=== PATIENT | male | born 1985 | race American Indian/Alaskan Native ===

== ENCOUNTER 2017-02-19 03:08 | Emergency (ER) | payer OTHER ==
[~2017-02-19] VITALS: Ht 175.3 cm; Wt 86.2 kg
[~2017-02-19 03:08] MED LIST: NORCO 10-325 T1 EACH PO; ULTRAM50 MG PO
== END 2017-02-19 04:01 | disposition home or self-care (01) ==
LOC: ED 03:08
DX: Z00.8 Encounter for other general examination (principal); F17.200 Nicotine dependence, unspecified, uncomplicated; Z79.899 Other long term (current) drug therapy
CPT/HCPCS: 80053; 80176; 84443; 85025; 99284; G0480; J7030

== ENCOUNTER 2017-04-13 20:02 | Emergency (ER) | payer OTHER ==
[~2017-04-13] VITALS: Ht 175.3 cm; Wt 86.2 kg
[2017-04-13] MEDS ORDERED: IBUPROFEN600 MG PO (20:49)
[2017-04-13] MEDS ORDERED: CEPHALEXIN500 MG PO (20:49)
== END 2017-04-13 20:54 | disposition home or self-care (01) ==
LOC: ED 20:02
PROC: 0HQNXZZ Repair Left Foot Skin, External Approach (ICD-10-PCS; principal; 2017-04-13)
DX: S91.312A Laceration without foreign body, left foot, initial encounter (principal); F17.200 Nicotine dependence, unspecified, uncomplicated; Z98.890 Other specified postprocedural states; W25.XXXA Contact with sharp glass, initial encounter
CPT/HCPCS: 12002; 99283

== ENCOUNTER 2024-05-27 14:07 | Emergency (ER) | payer OTHER ==
[~2024-05-27] VITALS: Ht 177.8 cm; Wt 127.0 kg
[~2024-05-27 14:07] MED LIST changes: +CEPHALEXIN500 MG PO; +IBUPROFEN600 MG PO
[2024-05-27] MEDS ORDERED: NALOXONE HCL 4 MG in DEXTROSE 5% 250 ML IV SCH (14:30)
[2024-05-27 15:09] LABS: BASOPHILS 0.7 % (0-2); EOSINOPHILS 1.2 % (0-6); HEMATOCRIT 39.2 % (35.0-50.0); HEMOGLOBIN 13.2 g/dL (12.0-18.0); LYMPHOCYTES 35.9 % (24-44); MCH 29.8 (27-36); MCHC 33.6 g/dl (30-36); MCV 88.8 fl (81-99); MONOCYTES 4.5 % (0-12); NEUTROPHILS 57.7 % (39-80); PLATELET COUNT 259 K/uL (140-440); RBC 4.42 M/ul (4.3-5.7); RDW 14.1 (10.5-15.0)
[2024-05-27 15:17] LABS: ALBUMIN 3.2 g/dL (3.4-5.0); ALCOHOL, MEDICAL <3 ng/dL (<3); ALKALINE PHOSPHATASE 111 U/L (46-116); ALT (SGPT) 23 U/L (14-59); ANION GAP 8.5 (7-21); AST (SGOT) 14 U/L (15-37); BILIRUBIN, TOTAL 0.3 ng/dL (0.2-1.0); BUN/CREATININE RATIO 8.62 (6.0-28.6); CALCIUM 8.7 mg/dL (8.5-10.1); CARBON DIOXIDE 30 mmol/L (21-32); CHLORIDE 108 mmol/L (98-107); CREATININE, SERUM 1.16 mg/dL (0.70-1.30); GLOMERULAR FILTRATION RATE,EST 83 mL/min (>60); POTASSIUM 3.5 mmol/L (3.5-5.1); PROTEIN, TOTAL 7.2 g/dL (6.4-8.2); UREA NITROGEN 10 mg/dL (7-18)
[2024-05-27] MEDS ORDERED: HALOPERIDOL LACTATE 5 MG/ML VIAL IV ONE (15:30)
[2024-05-27 20:31] LABS: AMPHETAMINES, URINE POSITIVE (NEGATIVE); BARBITURATES, URINE NEGATIVE (NEGATIVE); BENZODIAZEPINE, URINE NEGATIVE (NEGATIVE); BUPRENORPHINE, URINE NEGATIVE (NEGATIVE); CANNABINOID, URINE POSITIVE (NEGATIVE); COCAINE, URINE NEGATIVE (NEGATIVE); ECSTASY, URINE POSITIVE (NEGATIVE); FENTANYL, URINE POSITIVE (NEGATIVE); METHADONE, URINE POSITIVE (NEGATIVE); OPIATES, URINE NEGATIVE (NEGATIVE); OXYCODONE, URINE NEGATIVE (NEGATIVE); PHENCYCLIDINE, URINE NEGATIVE (NEGATIVE)
[2024-05-27] MEDS ORDERED: NALOXONE 4 MG NASAL SPRAY #2 HOME.PACK NAS ONE (22:15)
[2024-05-27 22:35] VITALS: BP 102/77
== END 2024-05-27 22:35 | disposition home or self-care (01) ==
LOC: ED 14:07
PROVIDERS: Emergency Medicine
DX: T40.411A Poisoning by fentanyl or fentanyl analogs, accidental (unintentional), initial encounter (principal); R41.82 Altered mental status, unspecified; F17.200 Nicotine dependence, unspecified, uncomplicated
CPT/HCPCS: 36415; 71045; 80053; 80307; 85025; 96365; 96375; 99284-25; G0480; J1630; J2310; J3490; J7060

== ENCOUNTER 2024-07-27 08:45 | Emergency (ER) | payer OTHER ==
[~2024-07-27] VITALS: Ht 177.8 cm; Wt 126.5 kg
[2024-07-27 09:10] LABS: BASOPHILS 0.6 % (0-2); EOSINOPHILS 0.4 % (0-6); HEMATOCRIT 42.4 % (35.0-50.0); HEMOGLOBIN 14.2 g/dL (12.0-18.0); LYMPHOCYTES 12.4 % (24-44); MCH 29.5 (27-36); MCHC 33.4 g/dl (30-36); MCV 88.2 fl (81-99); MONOCYTES 3.2 % (0-12); NEUTROPHILS 83.4 % (39-80); PLATELET COUNT 309 K/uL (140-440); RDW 13.7 (10.5-15.0)
[2024-07-27 09:25] LABS: ALBUMIN 3.4 g/dL (3.4-5.0); ALBUMIN/GLOBULIN RATIO 0.71 (1.1-2.4); ANION GAP 15.7 (7-21); BILIRUBIN, TOTAL 0.3 ng/dL (0.2-1.0); BUN/CREATININE RATIO 17.59 (6.0-28.6); CALCIUM 8.7 mg/dL (8.5-10.1); CREATININE, SERUM 1.08 mg/dL (0.70-1.30); POTASSIUM 3.7 mmol/L (3.5-5.1); PROTEIN, TOTAL 8.2 g/dL (6.4-8.2)
[2024-07-27] MEDS ORDERED: DIPHTH,PERTUSS(ACELL),TET VAC 0.5 ML SYRINGE IM ONE (09:30)
[2024-07-27 09:43] LABS: ABO O
[2024-07-27 09:44] LABS: ANTIBODY SCREEN NEGATIVE; RH POSITIVE
[2024-07-27] MEDS ORDERED: HYDROmorphone HCL 1 MG/ML SYR IV ONE (10:15)
[2024-07-27 13:55] VITALS: BP 130/93
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
== END 2024-07-27 13:58 | disposition home or self-care (01) ==
LOC: ED 08:45
PROVIDERS: Emergency Medicine
DX: S31.111A Laceration without foreign body of abdominal wall, left upper quadrant without penetration into peritoneal cavity, initial encounter (principal); W26.0XXA Contact with knife, initial encounter
CPT/HCPCS: 36415; 71260; 74177; 80053; 83690; 85025; 86850; 86900; 86901; 90471; 90715; 99283-25; G0480; J1171; Q9967